=== PATIENT | male | born 1950 | race Caucasian/White ===

== ENCOUNTER 2018-12-18 17:10 | Emergency (ER) | payer OTHER, MEDICAID ==
[~2018-12-18] VITALS: Ht 180.3 cm; Wt 102.1 kg
[2018-12-18 18:36] LABS: Chloride 107 mmol/L (98-107); Potassium 4.2 mmol/L (3.5-5.1); Sodium 138 mmol/L (136-145)
[2018-12-18 18:42] LABS: Basophils # (auto) 0.1 uL; Basophils % (auto) 0.7 % (0.0-2.0); Eosinophils # (auto) 0.2 uL; Eosinophils % (auto) 2.3 % (0.0-7.0); Hematocrit 43.3 % (41.0-53.0); Hemoglobin 14.7 g/dL (13.5-17.5); Lymphocytes # (auto) 1.2 uL; Lymphocytes % (auto) 15.7 % (10.0-50.0); Mean Corpuscular Hemoglobin 31.8 pg (28.0-32.0); Mean Corpuscular Hgb Conc. 34.1 g/dL (32.0-36.0); Mean Corpuscular Volume 93.3 fL (80.0-100.0); Monocytes # (auto) 0.7 uL; Monocytes % (auto) 9.5 % (0.0-12.0); Neutrophils # (auto) 5.4 uL; Neutrophils % (auto) 71.8 % (37.0-80.0); Nucleated Red Blood Cells % 0.1 %; Platelet Count (auto) 251 10^3/uL (140-450); Red Blood Cells 4.64 10^6/uL (4.5-5.90); Red Cell Distribution Width 14.4 % (11.8-14.3); White Blood Cell 7.5 10^3/uL (4.4-10.8)
[2018-12-18 18:52] LABS: Alanine Aminotransferase 26 U/L (16-61); Albumin 3.9 g/dL (3.4-5.0); Alkaline Phosphatase 103 U/L (45-117); Anion Gap 7 (5-15); Aspartate Aminotransferase 17 U/L (15-37); BUN/Creatinine Ratio 19.4; Bilirubin, Total 0.2 mg/dL (0.2-1.0); Blood Urea Nitrogen 20 mg/dL (7-18); Calcium 8.6 mg/dL (8.5-10.1); Carbon Dioxide 24 mmol/L (21-32); GFR African American 92 mL/min; GFR Non-African American 76 mL/min; Glucose 93 mg/dL (74-106); Magnesium 2.2 mg/dL (1.6-2.6); Total Protein 7.2 g/dL (6.4-8.2)
[2018-12-18] MEDS ORDERED: cloNIDine HCL 0.1 MG TAB PO ONE (21:15)
[2018-12-18 21:49] VITALS: BP 158/62
== END 2018-12-18 22:12 | disposition short-term general hospital (02) ==
LOC: EDBD 17:10 → ER 17:14
DX: I24.9 Acute ischemic heart disease, unspecified (principal); I10 Essential (primary) hypertension; I48.91 Unspecified atrial fibrillation; I25.2 Old myocardial infarction; Z88.8 Allergy status to other drugs, medicaments and biological substances
CPT/HCPCS: 36415; 71045; 80053; 83735; 83880; 84484; 85025; 93005; 94761

== ENCOUNTER 2021-05-25 19:32 | Inpatient (IN) | payer OTHER, MEDICAID ==
[~2021-05-25] VITALS: Ht 193 cm; Wt 122.0 kg
[2021-05-25 20:22] LABS: Basophils # (auto) 0.1 10 ^3/uL (0-0.2); Basophils % (auto) 0.7 % (0.0-2.0); Eosinophils # (auto) 0.1 10 ^3/uL (0-0.8); Eosinophils % (auto) 1.8 % (0.0-7.0); Hematocrit 44.1 % (41.0-53.0); Hemoglobin 14.5 g/dL (13.5-17.5); Lymphocytes # (auto) 1.5 10 ^3/uL (0.4-5.4); Lymphocytes % (auto) 19.1 % (10.0-50.0); Mean Corpuscular Hemoglobin 30.3 pg (28.0-32.0); Mean Corpuscular Hgb Conc. 32.9 g/dL (32.0-36.0); Mean Corpuscular Volume 92.1 fL (80.0-100.0); Monocytes # (auto) 0.6 10 ^3/uL (0-1.3); Monocytes % (auto) 7.5 % (0.0-12.0); Neutrophils # (auto) 5.6 10 ^3/uL (1.6-8.6); Neutrophils % (auto) 70.9 % (37.0-80.0); Red Blood Cells 4.79 10^6/uL (4.5-5.90); Red Cell Distribution Width 14.7 % (11.8-14.3); White Blood Cell 7.9 10^3/uL (4.4-10.8)
[2021-05-25 20:33] LABS: Albumin 3.3 g/dL (3.4-5.0); Anion Gap 6 (5-15); Blood Urea Nitrogen 16 mg/dL (7-18); Calcium 8.5 mg/dL (8.5-10.1); Carbon Dioxide 25 mmol/L (21-32); Chloride 106 mmol/L (98-107); Glucose 138 mg/dL (74-106); Sodium 137 mmol/L (136-145)
[2021-05-25 20:38] LABS: Alanine Aminotransferase 35 U/L (16-61); Alkaline Phosphatase 97 U/L (45-117); Aspartate Aminotransferase 16 U/L (15-37); Bilirubin, Total 0.2 mg/dL (0.2-1.0); GFR African American 82 mL/min; GFR Non-African American 67 mL/min; Total Protein 6.9 g/dL (6.4-8.2)
[2021-05-26] MEDS ORDERED: TEMAZEPAM 15 MG CAP PO PRN (01:00)
[2021-05-26] MEDS ORDERED: ONDANSETRON HCL 4 MG/2 ML VIAL IV PRN (01:00)
[2021-05-26] MEDS ORDERED: ACETAMINOPHEN 325 MG TAB PO PRN (01:00)
[2021-05-26] MEDS ORDERED: NITROGLYCERIN 0.4 MG SL TAB SL PRN (01:00)
[2021-05-26 05:50] LABS: Urine Bacteria NONE SEEN /hpf (None Seen); Urine Blood Negative /uL (Negative); Urine Specific Gravity 1.019 (1.001-1.035); Urine WBC 2 /hpf (0 - 3)
[2021-05-26 09:00] VITALS: BP 177/91
[2021-05-26] MEDS: ENOXAPARIN SOD 40 MG/0.4 ML SYRINGE SC SCH (09:39)
[2021-05-26] MEDS: LISINOPRIL 20 MG TAB PO SCH (09:39)
[2021-05-26] MEDS: ASPirin 81 mg TAB PO SCH (09:39)
[2021-05-26 10:10] VITALS: BP 177/91
[2021-05-26] MEDS ORDERED: ASPI1TAB20 PO (11:16)
[2021-05-26 13:00] VITALS: BP 134/69
[2021-05-26] MEDS ORDERED: HYDR-4902 PO (13:06)
[2021-05-26] MEDS ORDERED: ATORVASTATIN 20 MG TAB PO ONE (13:30)
[2021-05-26] MEDS ORDERED: CARV3.1240 PO (13:59)
[2021-05-26] MEDS ORDERED: LISI20TA28 PO (13:59)
[2021-05-26] MEDS ORDERED: TERA2CAP45 PO (14:00)
[2021-05-26 16:10] LABS: Magnesium 2.4 mg/dL (1.6-2.6)
[2021-05-26] MEDS ORDERED: HYDR1TAB97 PO (17:14)
[2021-05-26] MEDS: TERAZOSIN HCL 1 MG CAP PO SCH (21:38)
[2021-05-26] MEDS: HYDROcodone-ACET 5/325MG TAB PO PRN (21:39)
[2021-05-26] MEDS: METOPROLOL TARTRATE 50 MG TAB PO SCH (21:39)
[2021-05-26 22:00] VITALS: BP 128/74
[2021-05-26] MEDS ORDERED: ATORVASTATIN 20 MG TAB PO SCH (22:00)
[2021-05-26] MEDS ORDERED: PRAVASTATIN SODIUM 20 MG TAB PO SCH (22:00)
[2021-05-27] MEDS: HYDROcodone-ACET 5/325MG TAB PO PRN ×4 (04:39→23:00)
[2021-05-27 05:00] VITALS: BP 133/74
[2021-05-27 05:53] LABS: Basophils # (auto) 0.1 10 ^3/uL (0-0.2); Eosinophils # (auto) 0.2 10 ^3/uL (0-0.8); Eosinophils % (auto) 2.3 % (0.0-7.0); Hematocrit 43.4 % (41.0-53.0); Hemoglobin 15.1 g/dL (13.5-17.5); Lymphocytes # (auto) 1.7 10 ^3/uL (0.4-5.4); Lymphocytes % (auto) 23.2 % (10.0-50.0); Mean Corpuscular Hgb Conc. 34.7 g/dL (32.0-36.0); Mean Corpuscular Volume 92.2 fL (80.0-100.0); Monocytes # (auto) 0.7 10 ^3/uL (0-1.3); Monocytes % (auto) 9.5 % (0.0-12.0); Neutrophils # (auto) 4.6 10 ^3/uL (1.6-8.6); Nucleated Red Blood Cells % 0.2 %; Red Blood Cells 4.71 10^6/uL (4.5-5.90); White Blood Cell 7.2 10^3/uL (4.4-10.8)
[2021-05-27 06:30] LABS: BUN/Creatinine Ratio 15.6; Calcium 8.6 mg/dL (8.5-10.1); Potassium 4.3 mmol/L (3.5-5.1)
[2021-05-27] MEDS ORDERED: REGADENOSON 0.4 MG/5 ML SYRG IV ONE (07:30)
[2021-05-27 09:00] VITALS: BP_SYST 141; BP_SYST 144; BP_SYST 150; BP_DIAS 85; BP_DIAS 90; BP_DIAS 92
[2021-05-27] MEDS: ASPirin 81 mg TAB PO SCH (10:04)
[2021-05-27] MEDS: ENOXAPARIN SOD 40 MG/0.4 ML SYRINGE SC SCH (10:05)
[2021-05-27] MEDS: METOPROLOL TARTRATE 50 MG TAB PO SCH (10:06)
[2021-05-27] MEDS: LISINOPRIL 20 MG TAB PO SCH (10:08)
[2021-05-27] MEDS ORDERED: cloNIDine HCL 0.1 MG TAB PO PRN (12:00)
[2021-05-27 13:00] VITALS: BP_SYST 131; BP_SYST 138; BP_SYST 140; BP_DIAS 82; BP_DIAS 87
[2021-05-27 17:00] VITALS: BP_SYST 124; BP_SYST 138; BP_SYST 151; BP_DIAS 74; BP_DIAS 75; BP_DIAS 79
[2021-05-27] MEDS: TERAZOSIN HCL 1 MG CAP PO SCH (21:06)
[2021-05-27] MEDS: METOPROLOL TARTRATE 25 MG TAB PO SCH (21:07)
[2021-05-27] MEDS: ATORVASTATIN 20 MG TAB PO SCH (21:07)
[2021-05-27 22:00] VITALS: BP 143/90
[2021-05-28 05:00] VITALS: BP 122/75
[2021-05-28] MEDS: HYDROcodone-ACET 5/325MG TAB PO PRN ×4 (05:04→22:24)
[2021-05-28 05:28] VITALS: BP 139/82
[2021-05-28 05:29] VITALS: BP 122/93
[2021-05-28] MEDS ORDERED: REGADENOSON 0.4 MG/5 ML SYRG IV ONE (08:15)
[2021-05-28 09:00] VITALS: BP_SYST 121; BP_SYST 132; BP_DIAS 61; BP_DIAS 80; BP_DIAS 83
[2021-05-28] MEDS ORDERED: ENOXAPARIN SOD 60 MG/0.6 ML SYRINGE SC SCH (10:00)
[2021-05-28] MEDS: ASPirin 81 mg TAB PO SCH (10:19)
[2021-05-28] MEDS: METOPROLOL TARTRATE 25 MG TAB PO SCH ×2 (10:22→22:24)
[2021-05-28] MEDS: LISINOPRIL 20 MG TAB PO SCH (10:23)
[2021-05-28 13:00] VITALS: BP_SYST 131; BP_SYST 139; BP_SYST 155; BP_DIAS 74; BP_DIAS 77; BP_DIAS 86
[2021-05-28 17:00] VITALS: BP 130/84
[2021-05-28] MEDS: ATORVASTATIN 20 MG TAB PO SCH (22:23)
[2021-05-28] MEDS: TERAZOSIN HCL 1 MG CAP PO SCH (22:23)
[2021-05-29] VITALS (10 sets, daily range): BP systolic 108–145; BP diastolic 66–95
[2021-05-29] MEDS: MORPHINE SULFATE INJECTION 2 MG/ML SYRG IV PRN ×2 (02:11→08:09)
[2021-05-29] MEDS: HYDROcodone-ACET 5/325MG TAB PO PRN ×3 (04:51→21:45)
[2021-05-29 05:52] LABS: Basophils # (auto) 0.1 10 ^3/uL (0-0.2); Basophils % (auto) 0.9 % (0.0-2.0); Eosinophils # (auto) 0.2 10 ^3/uL (0-0.8); Eosinophils % (auto) 2.5 % (0.0-7.0); Hematocrit 45.3 % (41.0-53.0); Hemoglobin 15.1 g/dL (13.5-17.5); Lymphocytes # (auto) 1.6 10 ^3/uL (0.4-5.4); Lymphocytes % (auto) 19.5 % (10.0-50.0); Mean Corpuscular Hemoglobin 30.8 pg (28.0-32.0); Mean Corpuscular Hgb Conc. 33.2 g/dL (32.0-36.0); Mean Corpuscular Volume 92.6 fL (80.0-100.0); Monocytes # (auto) 0.7 10 ^3/uL (0-1.3); Monocytes % (auto) 8.9 % (0.0-12.0); Neutrophils # (auto) 5.7 10 ^3/uL (1.6-8.6); Neutrophils % (auto) 68.2 % (37.0-80.0); Nucleated Red Blood Cells % 0.1 %; Red Blood Cells 4.89 10^6/uL (4.5-5.90); Red Cell Distribution Width 14.7 % (11.8-14.3); White Blood Cell 8.4 10^3/uL (4.4-10.8)
[2021-05-29 06:06] LABS: INR 1.05 (0.9-1.15)
[2021-05-29 06:12] LABS: BUN/Creatinine Ratio 18.1; Calcium 8.4 mg/dL (8.5-10.1); Potassium 4.3 mmol/L (3.5-5.1)
[2021-05-29] MEDS: METOPROLOL TARTRATE 25 MG TAB PO SCH ×2 (08:07→21:44)
[2021-05-29] MEDS: LISINOPRIL 20 MG TAB PO SCH (08:08)
[2021-05-29 08:14] LABS: INR 1.04 (0.9-1.15)
[2021-05-29] MEDS: ASPirin 81 mg TAB PO SCH (10:00)
[2021-05-29] MEDS ORDERED: HEPARIN SODIUM (PORCINE) 5000 UNITS/ML 1ML VIAL ONE (12:23)
[2021-05-29] MEDS ORDERED: fentaNYL CITRATE 100 MCG/2 ML VL ONE (12:23)
[2021-05-29] MEDS ORDERED: VERAPAMIL 2.5MG/ML INJ 2ML VIAL IV ONE (12:23)
[2021-05-29] MEDS ORDERED: MIDAZOLAM HCL 2MG/2ML 2ml VIAL (1mg/ml) ONE ×2 (12:23→13:09)
[2021-05-29] MEDS ORDERED: ANGIOMAX 250 MG VIAL IV ONE (12:24)
[2021-05-29] MEDS ORDERED: SODIUM CHL 0.9% 50 ML ONE (12:24)
[2021-05-29] MEDS ORDERED: IODIXANOL 320MG/ML 100ML BTL IV ONE ×3 (12:38→13:57)
[2021-05-29] MEDS ORDERED: LIDOCAINE 2%HCL (LOCAL ANESTH.) INJ 20ML MDV ONE (12:38)
[2021-05-29] MEDS ORDERED: HYDROmorphone HCL 2 MG/ML VL ONE (13:56)
[2021-05-29] MEDS ORDERED: TICAGRELOR 90 MG TAB ONE (14:01)
[2021-05-29] MEDS: TICAGRELOR 90 MG TAB PO SCH (21:42)
[2021-05-29] MEDS: TERAZOSIN HCL 1 MG CAP PO SCH (21:43)
[2021-05-29] MEDS: ATORVASTATIN 20 MG TAB PO SCH (21:43)
[2021-05-30 05:00] VITALS: BP 100/58
[2021-05-30] MEDS: HYDROcodone-ACET 5/325MG TAB PO PRN (05:16)
[2021-05-30 09:00] VITALS: BP 114/57
[2021-05-30] MEDS: ASPirin 81 mg TAB PO SCH (09:20)
[2021-05-30] MEDS: LISINOPRIL 20 MG TAB PO SCH (09:20)
[2021-05-30] MEDS: TICAGRELOR 90 MG TAB PO SCH (09:21)
[2021-05-30] MEDS ORDERED: ENOXAPARIN SOD 40 MG/0.4 ML SYRINGE SC SCH (10:00)
[2021-05-30] MEDS: METOPROLOL TARTRATE 25 MG TAB PO SCH (10:56)
[2021-05-30 12:29] VITALS: BP 104/62
[2021-05-30 13:00] VITALS: BP 101/71
== END 2021-05-30 13:25 | disposition home or self-care (01) | DRG 246 ==
LOC: ER 19:33 → TELE 05-26 00:51 → TELE-WESTW 05-26 08:58
PROVIDERS: ADMIT Nurse Practitioner; ATTEND Family Medicine
PROC: 4A023N7 Measurement of Cardiac Sampling and Pressure, Left Heart, Percutaneous Approach (ICD-10-PCS; principal; 2021-05-29)
PROC: 027034Z Dilation of Coronary Artery, One Artery with Drug-eluting Intraluminal Device, Percutaneous Approach (ICD-10-PCS; 2021-05-29)
PROC: B211YZZ Fluoroscopy of Multiple Coronary Arteries using Other Contrast (ICD-10-PCS; 2021-05-29)
PROC: B215YZZ Fluoroscopy of Left Heart using Other Contrast (ICD-10-PCS; 2021-05-29)
DX: I24.9 Acute ischemic heart disease, unspecified (principal); G93.41 Metabolic encephalopathy; E44.0 Moderate protein-calorie malnutrition; Z20.822 Contact with and (suspected) exposure to COVID-19; I25.110 Atherosclerotic heart disease of native coronary artery with unstable angina pectoris; I10 Essential (primary) hypertension; E66.01 Morbid (severe) obesity due to excess calories; I48.91 Unspecified atrial fibrillation; F12.90 Cannabis use, unspecified, uncomplicated; E78.00 Pure hypercholesterolemia, unspecified; E78.5 Hyperlipidemia, unspecified; R42 Dizziness and giddiness; I71.4 Abdominal aortic aneurysm, without rupture; Z68.31 Body mass index [BMI] 31.0-31.9, adult; Z79.899 Other long term (current) drug therapy; Z85.828 Personal history of other malignant neoplasm of skin; Z87.442 Personal history of urinary calculi; Z87.891 Personal history of nicotine dependence; I25.2 Old myocardial infarction
CPT/HCPCS: 36415; 70450; 71045; 78452; 80048; 80053; 80061; 81001; 83036; 83735; 83880; 84443; 84484; 85025; 85610; 85730; 86850; 86900; 86901; 87426; 92928; 93005; 93017; 93306; 93458; 93886; 99152; 99153; C1874; C1887; G0378; J2250; Q9967

== ENCOUNTER 2023-09-17 16:36 | Emergency (ER) | payer OTHER, MEDICAID ==
[~2023-09-17] VITALS: Ht 180.3 cm; Wt 90.0 kg
[~2023-09-17 16:36] MED LIST: ASPI1TAB20 PO; CARV3.1240 PO; HYDR1TAB97 PO; LISI20TA56 PO; TERA2CAP45 PO
[2023-09-17] MEDS ORDERED: ONDANSETRON ODT 4 MG TAB PO ONE (17:30)
[2023-09-17] MEDS ORDERED: HYDROmorphone HCL 2 MG/ML VL/or syr IM ONE (17:30)
[2023-09-17 18:02] LABS: Basophils # (auto) 0.1 10 ^3/uL (0-0.2); Basophils % (auto) 0.8 % (0.0-2.0); Eosinophils # (auto) 0.2 10 ^3/uL (0-0.8); Eosinophils % (auto) 1.7 % (0.0-7.0); Hematocrit 42.4 % (41.0-53.0); Hemoglobin 13.9 g/dL (13.5-17.5); Lymphocytes # (auto) 1.1 10 ^3/uL (0.4-5.4); Lymphocytes % (auto) 11.7 % (10.0-50.0); Mean Corpuscular Hemoglobin 30.8 pg (28.0-32.0); Mean Corpuscular Hgb Conc. 32.9 g/dL (32.0-36.0); Mean Corpuscular Volume 93.9 fL (80.0-100.0); Monocytes # (auto) 0.7 10 ^3/uL (0-1.3); Monocytes % (auto) 7.8 % (0.0-12.0); Neutrophils # (auto) 7.1 10 ^3/uL (1.6-8.6); Red Blood Cells 4.52 10^6/uL (4.5-5.90); Red Cell Distribution Width 13.9 % (11.8-14.3); White Blood Cell 9.1 10^3/uL (4.4-10.8)
[2023-09-17 18:13] LABS: Alanine Aminotransferase 15 U/L (7-40); Albumin 4.1 g/dL (3.2-4.8); Alkaline Phosphatase 87 U/L (46-116); Anion Gap 6 (5-15); Aspartate Aminotransferase 13 U/L (13-40); BUN/Creatinine Ratio 27.1 (10.0-20.0); Bilirubin, Total 0.3 mg/dL (0.2-1.0); Blood Urea Nitrogen 23 mg/dL (9-23); Calcium 8.8 mg/dL (8.7-10.4); Carbon Dioxide 23 mmol/L (20-30); Chloride 109 mmol/L (98-107); Glucose 100 mg/dL (74-106); Lipase 29 U/L (12-53); Potassium 4.1 mmol/L (3.5-5.1); Sodium 138 mmol/L (136-145); Total Protein 6.1 g/dL (5.7-8.2)
[2023-09-17] MEDS ORDERED: HYDROmorphone HCL 2 MG/ML VL/or syr IV ONE ×2 (19:00→22:15)
[2023-09-17 20:15] VITALS: PULSE 68; RESP 18; O2SAT 94
[2023-09-18] MEDS ORDERED: HYDROmorphone HCL 2 MG/ML VL/or syr IV ONE (02:30)
[2023-09-18 02:37] VITALS: BP 118/72; PULSE 66; RESP 18; TEMP 98.1; O2SAT 93
== END 2023-09-18 03:15 | disposition short-term general hospital (02) ==
LOC: ER 16:36 → EDBD 16:36 → ER 09-18 03:15
DX: S70.01XA Contusion of right hip, initial encounter (principal); I10 Essential (primary) hypertension; W01.0XXA Fall on same level from slipping, tripping and stumbling without subsequent striking against object, initial encounter; Y93.89 Activity, other specified; Y92.89 Other specified places as the place of occurrence of the external cause; Y99.8 Other external cause status
CPT/HCPCS: 36415; 72192; 73130; 73552; 80053; 83605; 83690; 83880; 84484; 85025; 93005; 96374; 96376; 99285; J1170; Q0162